=== PATIENT | female | born 1995 | race Caucasian/White ===

== ENCOUNTER 2017-11-20 23:18 | Emergency (ER) | payer OTHER ==
--- NOTE | 2017-11-21 00:19 | ER Document Report ---
ED Medical Screen (RME) - General Chief Complaint: Pelvic Pain Stated Complaint: ABDOMINAL PAIN Time Seen by Provider: 11/21/17 00:17 Mode of Arrival: Ambulatory Information source: Patient Notes: 22-year-old female presented to ED for complaint of low back pain times 2 days. She states it kept getting worse and now she is having pain all the way across her abdomen. She states she had a bowel movement today. She states her last menstrual period was 10 days ago. Abdomen is soft tender to palpation with active bowel sounds throughout. Patient also has tenderness to bilateral flanks. Patient denies any fevers. I have greeted and performed a rapid initial assessment of this patient. A comprehensive ED assessment and evaluation of the patient, analysis of test results and completion of medical decision making process will be conducted by an additional ED providers. Physical Exam - Vital signs Vitals: Temp Pulse Resp BP Pulse Ox 98.8 F 94 16 127/68 H 100 11/20/17 23:25 11/20/17 23:25 11/20/17 23:25 11/20/17 23:25 11/20/17 23:25 Course - Vital Signs Vital signs: Temp Pulse Resp BP Pulse Ox 98.8 F 94 16 127/68 H 100 11/20/17 23:25 11/20/17 23:25 11/20/17 23:25 11/20/17 23:25 11/20/17 23:25
[2017-11-21 00:53] LABS: ABSOLUTE EOSINOPHILS # (AUTO) 0.1 10^3/uL (0.0-0.6); ABSOLUTE LYMPHOCYTES (AUTO) 2.2 10^3/uL (0.5-4.7); ABSOLUTE MONOCYTES (AUTO) 0.5 10^3/uL (0.1-1.4); ABSOLUTE NEUT (AUTO) 4.6 10^3/uL (1.7-8.2); BASOPHILS % (AUTO) 0.7 % (0-2); EOSINOPHILS % (AUTO) 1.3 % (0-6); HEMATOCRIT 36.5 % (36.0-47.0); HEMOGLOBIN 12.5 g/dL (12.0-15.5); LYMPHOCYTES % (AUTO) 29.3 % (13-45); MEAN CORPUSCULAR HEMOGLOBIN 31.6 pg (27.0-33.4); MEAN CORPUSCULAR HGB CONC 34.1 g/dL (32.0-36.0); MEAN CORPUSCULAR VOLUME 93 fl (80-97); MONOCYTES % (AUTO) 6.4 % (3-13); PLATELET COUNT 236 10^3/uL (150-450); RED BLOOD COUNT 3.94 10^6/uL (3.72-5.28); RED CELL DISTRIBUTION WIDTH 13.9 % (11.5-14.0); SEGMENTED NEUTROPHILS % (AUTO) 62.3 % (42-78); TOTAL CELLS COUNTED % (AUTO) 100 %; WHITE BLOOD COUNT 7.5 10^3/uL (4.0-10.5)
[2017-11-21 00:57] LABS: APPEARANCE,URINE SLIGHTLY-CLOUDY; BILIRUBIN,URINE NEGATIVE (NEGATIVE); COLOR,URINE YELLOW; GLUCOSE, URINE NEGATIVE (NEGATIVE); KETONES,URINE NEGATIVE (NEGATIVE); LEUKOCYTE ESTERASE,URINE NEGATIVE (NEGATIVE); NITRITE,URINE NEGATIVE (NEGATIVE); PROTEIN,URINE NEGATIVE (NEGATIVE); URINE SPECIFIC GRAVITY 1.024; UROBILINOGEN,URINE NEGATIVE mg/dL (<2.0)
[2017-11-21 01:05] LABS: ALANINE AMINOTRANSFERASE 21 U/L (9-52); ALBUMIN 4.1 g/dL (3.5-5.0); ALKALINE PHOSPHATASE 58 U/L (38-126); ANION GAP 9 (5-19); ASPARTATE AMINO TRANSFERASE 17 U/L (14-36); BILIRUBIN,DIRECT 0.2 mg/dL (0.0-0.4); BILIRUBIN,TOTAL 0.4 mg/dL (0.2-1.3); BLOOD UREA NITROGEN 12 mg/dL (7-20); CALCIUM 9.8 mg/dL (8.4-10.2); CARBON DIOXIDE 29 mmol/L (22-30); CHLORIDE 102 mmol/L (98-107); GLUCOSE 85 mg/dL (75-110); POTASSIUM 3.9 mmol/L (3.6-5.0); SODIUM 139.9 mmol/L (137-145); TOTAL PROTEIN 6.9 g/dL (6.3-8.2)
--- NOTE | 2017-11-21 02:15 | ER Document Report ---
ED General - General Chief Complaint: Pelvic Pain Stated Complaint: ABDOMINAL PAIN Time Seen by Provider: 11/21/17 00:17 Mode of Arrival: Ambulatory Information source: Patient - [facility] Patient complains to provider of: abdominal pain Onset: Other - This is a 22-year-old healthy female without any past surgical or medical history that presents for evaluation of abdominal pain and low back pain times 2 days without any other obvious symptoms, denies fevers or chills, constipation, diarrhea, dysuria, maybe low level nausea but no episodes of emesis does denies any rashes recent exposures to ill people. Nothing seems to make it any better or worse, she does note that when she eats a lot of food it does seem to bother her a little bit more. - Related Data Allergies/Adverse Reactions: No Known Allergies Allergy (Verified 11/21/17 01:45) Past Medical History - General Information source: Patient - Social History Smoking Status: Never Smoker Family History: None Patient has suicidal ideation: No Patient has homicidal ideation: No Renal/ Medical History: Denies: Hx Peritoneal Dialysis Review of Systems - Review of Systems -: Yes All other systems reviewed and negative Physical Exam - Vital signs Vitals: Temp Pulse Resp BP Pulse Ox 98.8 F 94 16 127/68 H 100 11/20/17 23:25 11/20/17 23:25 11/20/17 23:25 11/20/17 23:25 11/20/17 23:25 - General General appearance: Appears well In distress: None - HEENT Head: Normocephalic Eyes: Normal Conjunctiva: Normal Cornea: Normal Extraocular movements intact: Yes Eyelashes: Normal Pupils: PERRL - Respiratory Respiratory status: No respiratory distress Chest status: Nontender Breath sounds: Normal Chest palpation: Normal - Cardiovascular Rhythm: Regular Heart sounds: Normal auscultation Murmur: No - Abdominal Inspection: Normal Distension: No distension Bowel sounds: Normal Tenderness: Tender - Diffuse tenderness most prominent in the right lower quadrant - Back Back: Normal - Extremities General upper extremity: Normal inspection, Nontender, Normal strength, Normal temperature General lower extremity: Normal inspection, Nontender, Normal strength, Normal temperature - Neurological Neuro grossly intact: Yes Cognition: Normal Orientation: AAOx4 Mike Coma Scale Eye Opening: Spontaneous Mike Coma Scale Verbal: Oriented Mike Coma Scale Motor: Obeys Commands [place] Coma Scale Total: 15 Speech: Normal Cranial nerves: Normal Motor strength normal: LUE, RUE, LLE, RLE - Psychological Associated symptoms: Normal affect Course - Re-evaluation Re-evalutation: 11/21/17 05:37 This healthy 22-year-old female presents for evaluation of a vague abdominal pain. On examination she looks relatively well however her abdomen is diffusely tender , no obvious rebound or guarding, this patient does have some element of tenderness in the right lower quadrant. Labs were ordered through triage which demonstrate no obvious marked abnormalities. Urinalysis is also unremarkable. We will obtain CT the abdomen and pelvis. CT abdomen and pelvis does not demonstrate any obvious abnormality, patient does have a relatively elevated level of stool burden. Her abdominal exam remains relatively reassuring without any rebound or guarding. Patient is able to tolerate p.o. in the emergency department. Do not believe that the patient has an underlying appendicitis, ovarian abnormality such as but not limited to torsion or cyst or some other colitis in the abdomen. Current plan will be for this patient undergo discharge with an aggressive bowel regimen and strict return precautions in case of any worsening. - Vital Signs Vital signs: Temp Pulse Resp BP Pulse Ox 98.8 F 94 16 127/68 H 100 11/20/17 23:25 11/20/17 23:25 11/20/17 23:25 11/20/17 23:25 11/20/17 23:25 - Laboratory Result Diagrams: 11/21/17 00:25 11/21/17 00:25 Discharge - Discharge Clinical Impression: Abdominal pain Qualifiers: Abdominal location: generalized Qualified Code(s): R10.84 - Generalized abdominal pain Constipation Qualifiers: Constipation type: unspecified constipation type Qualified Code(s): K59.00 - Constipation, unspecified Condition: Good Disposition: HOME, SELF-CARE Instructions: Abdominal Pain ([facility]), Bulk Laxatives Additional Instructions: You were seen today in the emergency department for your abdominal pain you had tests including urine tests, blood tests, and a CT of the abdomen. It looks like you have a large amount of stool in your bowels. You do not have any obvious signs of infection at this time. You should utilize the laxative prescribed to you twice daily for the next week until you are having at least one large regular bowel movement per day. If you do not have any relief in the next 3 days use the prescribed medicine for you as a strong laxative to clean out her bowels. Take it half of a bottle at a time. Return for worsening fevers or chills, inability to eat or drink, nausea or vomiting. Prescriptions: Magnesium Citrate 296 ml PO ONCE PRN #1 solution PRN Reason: Polyethylene Glycol 3350 [Miralax Powder 17 gm/Packet] 1 packet PO BID #1 pkg
[2017-11-21] MEDS ORDERED: NORMAL SALINE 1000 ML 1,000 ML IV ONE (02:16)
--- NOTE | 2017-11-21 04:00 | RADIOLOGY REPORT (SQ) ---
EXAM DESCRIPTION: CT ABDOMEN PELVIS WITH IV CONTRAST COMPLETED DATE/TME: 11/21/2017 02:15 CLINICAL HISTORY: Right lower quadrant pain. COMPARISON: None Available. TECHNIQUE: CT of the abdomen and pelvis performed following IV administration of 76 mL of Omnipaque 350. DLP: 604.50 mGycm FINDINGS: Lung Bases: The visualized lung bases are clear. Bones: No destructive bone lesions identified. Abdomen: Liver: The liver has normal size and density. No intrahepatic mass or biliary dilatation. Gallbladder: No calcified gallstones. Spleen, Pancreas, and Adrenal Glands: The spleen, pancreas, and adrenal glands are unremarkable. Kidneys: The kidneys have normal size and contour without evidence of solid mass or hydronephrosis. Vasculature: The aorta and IVC have normal caliber and position. The portal vein is patent. The proximal visceral and renal arteries are patent. Stomach: The stomach and duodenum have normal course. Other: No free intraperitoneal air. No free fluid or lymphadenopathy. Pelvis: Bladder: Urinary bladder is unremarkable. Bowel: No dilated loops of large or small bowel. Appendix: Normal appendix. Pelvis: Uterus is not enlarged. IMPRESSION: 1. No acute inflammatory or obstructive process identified. This exam was performed according to our departmental dose-optimization program, which includes automated exposure control, adjustment of the mA and/or kV according to patient size and/or use of iterative reconstruction technique.
[2017-11-21 04:25] VITALS: BP 111/60
== END 2017-11-21 04:40 | disposition home or self-care (01) ==
LOC: ER 23:18
DX: R10.84 Generalized abdominal pain (principal); M54.5 Low back pain; K59.00 Constipation, unspecified; R10.2 Pelvic and perineal pain
CPT/HCPCS: 99284; 96360; 36415; 84703; 85025; 80053; 81001; 74177; J7030